=== PATIENT | female | born 1955 | race Caucasian/White ===

== ENCOUNTER 2025-04-22 10:51 | Inpatient (IN) | payer MEDICARE ==
[2025-04-22 11:24] LABS: Glucose,Whole Blood 124 mg/dL (70-110)
--- NOTE | 2025-04-22 11:33 | ED ---
General Adult HPI - General Chief complaint: Neuro Symptoms/Deficit Stated complaint: Visual issue Time Seen by Provider: 04/22/25 11:01 Source: patient, RN notes reviewed, old records reviewed Mode of arrival: ambulatory Limitations: no limitations - History of Present Illness Initial comments: 69-year-old female presenting for evaluation of double vision which began 5 days prior. Patient saw ophthalmology today and was sent to the emergency department to rule out CVA. She has double vision resolved with patching or covering of either eye. She denies significant headache. Denies focal numbness or weakness. Patient was started on Ozempic on Monday and symptoms began on . - Related Data Home Medications Medication Instructions Recorded Confirmed Albuterol Sulfate [Albuterol 2 puff INHALATION RT-QID PRN 04/22/25 04/22/25 Sulfate Hfa] Aspirin EC [Ecotrin Low Dose] 81 mg PO DAILY 04/22/25 04/22/25 Bacillus Coagulans [Digestive 1 tab PO DAILY 04/22/25 04/22/25 Advantage Probiotic Chew] Cholecalciferol (Vitamin D3) 50 mcg PO DAILY 04/22/25 04/22/25 [Vitamin D3 (50 Mcg = 2000 Iu) Chew Tab] Citalopram Hydrobromide [CeleXA] 40 mg PO HS 04/22/25 04/22/25 Cranberry 4200mg 4,200 mg PO TID 04/22/25 04/22/25 Enalapril [Vasotec] 20 mg PO BID 04/22/25 04/22/25 Famotidine [Pepcid] 20 mg PO BID 04/22/25 04/22/25 Fenofibrate [Lofibra] 160 mg PO DAILY 04/22/25 04/22/25 Insulin Degludec [Tresiba 47 units SQ HS 04/22/25 04/22/25 Flextouch U-100 Pen] Loratadine [Claritin] 10 mg PO DAILY PRN 04/22/25 04/22/25 Meloxicam [Mobic] 7.5 mg PO BID 04/22/25 04/22/25 Metoprolol Succinate [Toprol XL] 100 mg PO HS 04/22/25 04/22/25 Montelukast [Singulair] 10 mg PO HS 04/22/25 04/22/25 Multivitamins, Thera [Multivitamin 1 tab PO DAILY 04/22/25 04/22/25 (formulary)] [place]-3/Dha/Epa/Fish Oil [Fish Oil 1 cap PO BID 04/22/25 04/22/25 EC 1,000 mg Softgel] Omeprazole [PriLOSEC] 20 mg PO BID 04/22/25 04/22/25 Semaglutide [Ozempic] 0.25 mg SQ WE 04/22/25 04/22/25 Simvastatin [Zocor] 40 mg PO HS 04/22/25 04/22/25 amLODIPine [Norvasc] 10 mg PO HS 04/22/25 04/22/25 buPROPion XL [Wellbutrin XL] 300 mg PO DAILY 04/22/25 04/22/25 metFORMIN HCL 1,000 mg PO BID 04/22/25 04/22/25 Allergies Allergy/AdvReac Type Severity Reaction Status Date / Time Penicillins Allergy Rash/Hives Verified 04/22/25 12:19 Review of Systems ROS Statement: Those systems with pertinent positive or pertinent negative responses have been documented in the HPI. ROS Other: All systems not noted in ROS Statement are negative. 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 Absent: periorbital swelling Neck exam: Present: normal inspection. Absent: tenderness, meningismus Respiratory exam: Present: normal lung sounds bilaterally. Absent: respiratory distress, wheezes Cardiovascular Exam: Present: regular rate, normal rhythm GI/Abdominal exam: Present: soft. Absent: distended, tenderness, guarding Extremities exam: Present: normal inspection, normal capillary refill Neurological exam: Present: alert, oriented X3, CN II-XII intact (Suspect 3rd n erve palsy). Absent: motor sensory deficit Psychiatric exam: Present: normal affect, normal mood Skin exam: Present: warm, dry, intact Course Vital Signs 04/22/25 10:56 Temperature 98.0 F Pulse Rate 63 Respiratory 18 Rate Blood Pressure 133/84 O2 Sat by Pulse 98 Oximetry Medical Decision Making - Medical Decision Making Was pt. sent in by a medical professional or institution (BOGDAN Reeves, QUALITY PROCESS ENGINEER, urgent care, hospital, or half-way...) When possible be specific @ -No Did you speak to anyone other than the patient for history (EMS, parent, family, police, friend...)? What history was obtained from this source @ -No Did you review nursing and triage notes (agree or disagree)? Why? @ -I reviewed and agree with nursing and triage notes Were old charts reviewed (outside hosp., previous admission, EMS record, old EKG, old radiological studies, urgent care reports/EKG's, half-way records)? Report findings @ -No old charts were reviewed Differential CVA Ischemic stroke, hemorrhagic stroke, brain tumor, atypical migraine, Wernicke's encephalopathy, seizure, multiple sclerosis, meningitis, encephalitis, hypoglycemia, Guillain-, electrolytes disturbance, myasthenia gravis.... This is not meant to be an all-inclusive list EKG interpreted by me (3pts min.). @ -[Sinus rhythm rate of 62, WI interval 206, QRS duration 80, QTc 428 X-rays interpreted by me (1pt min.). @ -None done CT interpreted by me (1pt min.). @CT brain and CT angiography obtained, no intracranial occlusion or stenosis, no aneurysmal change, no intracranial hemorrhage. U/S interpreted by me (1pt. min.). @ -None done What testing was considered but not performed or refused? (CT, X-rays, U/S, labs)? Why? @ -None What meds were considered but not given or refused? Why? @ -None Did you discuss the management of the patient with other professionals (professionals i.e. BOGDAN Reeves, QUALITY PROCESS ENGINEER, lab, RT, psych nurse, social science professor, cabin cleaner, teacher, command center officer, counseling case manager)? Give summary @Case discussed with Dr. Fry who will admit and Dr. Naranjo covering for neurology Was smoking cessation discussed for >3mins.? @ -No Was critical care preformed (if so, how long)? @ -No Were there social determinants of health that impacted care today? How? (Homelessness, low income, unemployed, alcoholism, drug addiction, transportation, low edu. Level, literacy, decrease access to med. care, snf, rehab)? @ -No Was there de-escalation of care discussed even if they declined (Discuss DNR or withdrawal of care, Hospice)? DNR status @ -No What co-morbidities impacted this encounter? (DM, HTN, Smoking, COPD, CAD, Cancer, CVA, ARF, Chemo, Hep., AIDS, mental health diagnosis, sleep apnea, morbid obesity)? @ -[Hypertension and diabetes Was patient admitted / discharged? Hospital course, mention meds given and route, prescriptions, significant lab abnormalities, going to OR and other pertinent info. @ -69-year-old female presenting with a 5-day history of double vision. Patient has a partial paralysis of the right eye medial rectus on exam. Patient was sent in by ophthalmology for CVA rule out. CT CT angiography were ordered these were unremarkable. Patient has normal laboratory testing. She will be observed for MRI and neurology consultation. Undiagnosed new problem with uncertain prognosis? @ -No Drug Therapy requiring intensive monitoring for toxicity (Heparin, Nitro, Insulin, Cardizem)? @ -No Were any procedures done? @ -No Diagnosis/symptom? @3rd nerve palsy on the right Acute, or Chronic, or Acute on Chronic? @Acute Uncomplicated (without systemic symptoms) or Complicated (systemic symptoms)? @Complicated Side effects of treatment? @ -No Exacerbation, Progression, or Severe Exacerbation? @ -No Poses a threat to life or bodily function? How? (Chest pain, [place], CO, pneumonia, PE, COPD, DKA, ARF, appy, cholecystitis, CVA, Diverticulitis, Homicidal, Suicidal, threat to staff... and all critical care pts) @Yes, CVA - Lab Data Result diagrams: 04/22/25 11:33 04/22/25 11:33 Lab Results 04/22/25 04/22/25 04/22/25 Range/Units 11:23 11:33 11:33 WBC 8.68 (4.50-10.00) 10*3/uL RBC 4.51 (4.10-5.20) 10*6/uL Hgb 14.1 (12.0-15.0) g/dL Hct 40.5 (37.2-46.3) % MCV 89.8 (80.0-97.0) fL MCH 31.3 (27.0-32.0) pg MCHC 34.8 (32.0-37.0) g/dL Plt Count 119 L (140-440) 10*3/uL MPV 12.4 H (9.5-12.2) fL Immature Gran % (Auto) 0.6 % Neutrophils % 61.2 % Lymphocytes % 28.6 % Monocytes % 6.6 % Eosinophils % 2.1 % Basophils % 0.9 % Immature Gran # 0.05 H (0.00-0.04) 10*3/uL Neutrophils # 5.32 (1.80-7.70) 10*3/uL Lymphocytes # 2.48 (0.90-5.00) 10*3/uL Monocytes # 0.57 (0.20-1.00) 10*3/uL Eosinophils # 0.18 (0.04-0.35) 10*3/uL Basophils # 0.08 (0.00-0.10) 10*3/uL PT 10.4 (10.0-12.5) sec INR 0.9 (<1.2) APTT 21.9 L (22.0-30.0) sec Sodium (137-145) mmol/L Potassium (3.5-5.1) mmol/L Chloride (98-107) mmol/L Carbon Dioxide (22-30) mmol/L Anion Gap mmol/L BUN (7-17) mg/dL Creatinine (0.52-1.04) mg/dL Est GFR (CKD-EPI)AfAm (>60 ml/min/1.73 sqM) Est GFR (CKD-EPI)NonAf (>60 ml/min/1.73 sqM) Glucose (74-99) mg/dL POC Glucose (mg/dL) 124 H (70-110) mg/dL POC Glu Fish Drier ID Hardy Garza Calcium (8.4-10.2) mg/dL Total Bilirubin (0.2-1.3) mg/dL AST (14-36) U/L ALT (4-34) U/L Alkaline Phosphatase (38-126) U/L Creatine Kinase (30-135) U/L Total Protein (6.3-8.2) g/dL Albumin (3.5-5.0) g/dL 04/22/25 Range/Units 11:33 WBC (4.50-10.00) 10*3/uL RBC (4.10-5.20) 10*6/uL Hgb (12.0-15.0) g/dL Hct (37.2-46.3) % MCV (80.0-97.0) fL MCH (27.0-32.0) pg MCHC (32.0-37.0) g/dL Plt Count (140-440) 10*3/uL MPV (9.5-12.2) fL Immature Gran % (Auto) % Neutrophils % % Lymphocytes % % Monocytes % % Eosinophils % % Basophils % % Immature Gran # (0.00-0.04) 10*3/uL Neutrophils # (1.80-7.70) 10*3/uL Lymphocytes # (0.90-5.00) 10*3/uL Monocytes # (0.20-1.00) 10*3/uL Eosinophils # (0.04-0.35) 10*3/uL Basophils # (0.00-0.10) 10*3/uL PT (10.0-12.5) sec INR (<1.2) APTT (22.0-30.0) sec Sodium 139 (137-145) mmol/L Potassium 4.9 (3.5-5.1) mmol/L Chloride 103 (98-107) mmol/L Carbon Dioxide 26 (22-30) mmol/L Anion Gap 10 mmol/L BUN 21 H (7-17) mg/dL Creatinine 0.92 (0.52-1.04) mg/dL Est GFR (CKD-EPI)AfAm 73 (>60 ml/min/1.73 sqM) Est GFR (CKD-EPI)NonAf 64 (>60 ml/min/1.73 sqM) Glucose 113 H (74-99) mg/dL POC Glucose (mg/dL) (70-110) mg/dL POC Glu Fish Drier ID Calcium 9.6 (8.4-10.2) mg/dL Total Bilirubin 0.6 (0.2-1.3) mg/dL AST 22 (14-36) U/L ALT 14 (4-34) U/L Alkaline Phosphatase 72 (38-126) U/L Creatine Kinase 55 (30-135) U/L Total Protein 7.3 (6.3-8.2) g/dL Albumin 4.4 (3.5-5.0) g/dL Disposition 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
[2025-04-22 11:45] LABS: Basophils # (A) 0.08 10*3/uL (0.00-0.10); Basophils % (A) 0.9 %; Eosinophils # (A) 0.18 10*3/uL (0.04-0.35); Eosinophils % (A) 2.1 %; HCT 40.5 % (37.2-46.3); HGB 14.1 g/dL (12.0-15.0); Lymphocytes # (A) 2.48 10*3/uL (0.90-5.00); Lymphocytes % (A) 28.6 %; MCH 31.3 pg (27.0-32.0); MCHC 34.8 g/dL (32.0-37.0); MCV 89.8 fL (80.0-97.0); Monocytes # (A) 0.57 10*3/uL (0.20-1.00); Monocytes % (A) 6.6 %; Neutrophils # (A) 5.32 10*3/uL (1.80-7.70); Neutrophils % (A) 61.2 %; Platelet Count 119 10*3/uL (140-440); RBC 4.51 10*6/uL (4.10-5.20); RDW 12.6 % (11.5-14.5); WBC 8.68 10*3/uL (4.50-10.00)
[2025-04-22 11:57] LABS: ALT 14 U/L (4-34); AST 22 U/L (14-36); African American GFR (CKD) 73 (>60 ml/min/1.73 sqM); Albumin 4.4 g/dL (3.5-5.0); Alkaline Phosphatase 72 U/L (38-126); Anion Gap 10 mmol/L; Blood Urea Nitrogen 21 mg/dL (7-17); Calcium 9.6 mg/dL (8.4-10.2); Carbon Dioxide 26 mmol/L (22-30); Chloride 103 mmol/L (98-107); Creatine Kinase 55 U/L (30-135); Glucose 113 mg/dL (74-99); Non-African American GFR(CKD) 64 (>60 ml/min/1.73 sqM); Potassium 4.9 mmol/L (3.5-5.1); Sodium 139 mmol/L (137-145); Total Protein 7.3 g/dL (6.3-8.2)
[2025-04-22 11:59] LABS: INR 0.9 (<1.2); Partial Thromboplastin Time 21.9 sec (22.0-30.0); Prothrombin Time 10.4 sec (10.0-12.5)
--- NOTE | 2025-04-22 12:56 | CT ---
EXAMINATION TYPE: CT brain wo con DATE OF EXAM: 04/22/2025 12:49 PM COMPARISON: None. CLINICAL INDICATION: Female, 69 years old with history of Acute onset double vision, Acute onset doub le vision, TECHNIQUE: Examination was done in axial plane without intravenous contrast. Coronal and sagittal r econstructions performed. CT DLP: 1153 mGycm, Automated exposure control for dose reduction was used. FINDINGS: There is no evidence of acute intracranial hemorrhage, acute ischemic changes, mass, mass-effect, or extra-axial fluid collection. There is no effacement of cerebral sulci or basal subarachnoid cister ns. Mild ventricular prominence likely due to some central cerebral atrophy. There is no midline shif t. Prieto-white matter distinction is preserved. Moderate to severe confluent white matter hypodensities in both cerebral hemispheres. Moderate mucosal thickening left maxillary sinus. There is some underlying reactive new osteogenesis suggesting long-standing paranasal sinus disease. IMPRESSION: 1. Mild cerebral atrophy. Moderate to severe confluent burden of chronic small vessel ischemic diseas e. 2. No acute intracranial abnormality seen. If concern for subtle acute ischemia, consider follow-up M RI. 3. Long-standing chronic left maxillary sinusitis. [facility], , 04/22/2025 12:54 PM
--- NOTE | 2025-04-22 13:08 | CT ---
EXAMINATION TYPE: CT angio head neck DATE OF EXAM: 04/22/2025 12:54 PM COMPARISON: CT brain same day. CLINICAL INDICATION: Female, 69 years old with history of Acute onset double vision; PHH, Acute onset double vision TECHNIQUE: Axially acquired helical CT angiogram of the head and neck was obtained with contrast. Axi al images are supplemented with 3D reconstructions and MIP images which were post-processed at an in dependent workstation. NASCET criteria used. Contrast used:65 ml mL of Isovue 370 without and with IV Contrast, Oral contrast used: None. CT DLP: 462.1 mGycm, Automated exposure control for dose reduction was used. FINDINGS: CTA HEAD: Bilateral internal carotid arteries as well as the remainder of the anterior circulation is patent. The bilateral vertebral and basilar artery as well as the remainder of the posterior circulation is p atent. There is persistent origin left posterior cerebral artery. Dural venous sinuses are patent. No aneurysmal changes seen. CTA NECK: There is bovine configuration to the aortic arch. The vertebral arteries are codominant and patent throughout their course. The bilateral common carotid arteries are patent. The bilateral internal carotid arteries are patent. There is focal tortuosity of the proximal left IC A and minimal atherosclerotic calcifications of the left carotid bulb. The left carotid bulb, axial series 501 image 75 and coronal series 502 image 50 shows very subtle cu rvilinear intraluminal low density favored to represent artifact rather than a subtle dissection flap . Follow-up recommended. There is no abnormal mural thickening, significant atherosclerotic change, o r abnormal luminal narrowing appreciated. IMPRESSION: NECK: 1. Very subtle intraluminal linear low density within the left carotid bulb (axial series 501 image 7 5, coronal series 502 image 50) favored to represent artifact rather than a subtle short segment, dis section flap. No significant atherosclerotic change, mural thickening, or luminal narrowing is seen h ere. CTA follow-up in a couple days can be considered. 2. Otherwise, widely patent vertebral and carotid arteries of the neck. HEAD: 3. No large vessel intracranial arterial occlusion, significant stenosis, or aneurysmal change is see n. 4. 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 [facility], , 04/22/2025 1:06 PM
[2025-04-22] MEDS: ASPIRIN 325 MG TAB PO STA (13:17)
[2025-04-22] MEDS ORDERED: NALOXONE 0.4 MG/ML 1 ML VIAL IV PRN (13:36)
--- NOTE | 2025-04-22 16:27 | P.CNNES ---
History of Present Illness Consult date: 04/22/25 Requesting physician: Suraj Lanier Reason for Consult: right 3rd cranial nerve palsy History of Present Illness: This is a 69-year-old woman with underlying history of chronic diabetes, hypertension who was referred from her robotics systems engineer because of diplopia and to rule out stroke. Patient stated that since this past she has been having vertical diplopia and it was sudden onset. She initially noticed that her right eye was just swaying to the right. Had a when she closes either eye the diplopia improved. She denies any visual loss. Denies any new headache. She has chronic headaches but nothing worse than baseline. Denies any numbness, any speech difficulty, any difficulty swallowing, any weakness that is new. Denies any history of stroke or TIA in the past. She does take aspirin 81 mg daily. She was evaluated by outpatient robotics systems engineer Dr. Alonzo who felt the patient has right 4th cranial nerve palsy with questionable third cranial palsy over the left. Seems the patient has chronic diabetes for at least 22 years and this past Monday she started Ozempic for the first time. She has chronic hypertension and she thinks for about the same time. Her recent hemoglobin A1c was 7.6 about a week ago. Some of the workup during this hospital visit consisted of: I reviewed the lab workup CT of the head is reported as mild cerebral atrophy. Moderate to severe confluent burden of chronic small vessel ischemic disease. No acute intracranial abnormality seen. CT angiography of the head is reported as no large vessel intracranial arterial occlusion, significant stenosis or aneurysm change is seen. Anatomic variation with persistent origin left STAFF DEVELOPMENT COORDINATOR RN. CT angiography of the neck is reported as very septal intraluminal linear low- density within the left carotid favored to represent artifact rather than septal short segment dissection flap. No significant atherosclerotic change, mural thickening or luminal narrowing is seen here. CT angiography follow-up in a co uple days can be considered. Otherwise widely patent vertebral and carotid artery of the neck. 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 Past Psychological History: No Psychological Hx Reported Smoking Status: Never smoker Past Alcohol Use History: None Reported Past Drug Use History: Marijuana Medications and Allergies Home Medications Medication Instructions Recorded Confirmed Type Albuterol Sulfate [Albuterol 2 puff INHALATION RT-QID PRN 04/22/25 04/22/25 History Sulfate Hfa] Aspirin EC [Ecotrin Low Dose] 81 mg PO DAILY 04/22/25 04/22/25 History Bacillus Coagulans [Digestive 1 tab PO DAILY 04/22/25 04/22/25 History Advantage Probiotic Chew] Cholecalciferol (Vitamin D3) 50 mcg PO DAILY 04/22/25 04/22/25 History [Vitamin D3 (50 Mcg = 2000 Iu) Chew Tab] Citalopram Hydrobromide [CeleXA] 40 mg PO HS 04/22/25 04/22/25 History Cranberry 4200mg 4,200 mg PO TID 04/22/25 04/22/25 History Enalapril [Vasotec] 20 mg PO BID 04/22/25 04/22/25 History Famotidine [Pepcid] 20 mg PO BID 04/22/25 04/22/25 History Fenofibrate [Lofibra] 160 mg PO DAILY 04/22/25 04/22/25 History Insulin Degludec [Tresiba 47 units SQ HS 04/22/25 04/22/25 History Flextouch U-100 Pen] Loratadine [Claritin] 10 mg PO DAILY PRN 04/22/25 04/22/25 History Meloxicam [Mobic] 7.5 mg PO BID 04/22/25 04/22/25 History Metoprolol Succinate [Toprol XL] 100 mg PO HS 04/22/25 04/22/25 History Montelukast [Singulair] 10 mg PO HS 04/22/25 04/22/25 History Multivitamins, Thera [Multivitamin 1 tab PO DAILY 04/22/25 04/22/25 History (formulary)] [place]-3/Dha/Epa/Fish Oil [Fish Oil 1 cap PO BID 04/22/25 04/22/25 History EC 1,000 mg Softgel] Omeprazole [PriLOSEC] 20 mg PO BID 04/22/25 04/22/25 History Semaglutide [Ozempic] 0.25 mg SQ WE 04/22/25 04/22/25 History Simvastatin [Zocor] 40 mg PO HS 04/22/25 04/22/25 History amLODIPine [Norvasc] 10 mg PO HS 04/22/25 04/22/25 History buPROPion XL [Wellbutrin XL] 300 mg PO DAILY 04/22/25 04/22/25 History metFORMIN HCL 1,000 mg PO BID 04/22/25 04/22/25 History Allergies Allergy/AdvReac Type Severity Reaction Status Date / Time Penicillins Allergy Rash/Hives Verified 04/22/25 12:19 Physical Examination - Vital Signs Vital Signs: Vital Signs Temp Pulse Resp BP Pulse Ox 04/22/25 10:56 98.0 F 63 18 133/84 98 Intake and Output 04/22/25 04/22/25 04/22/25 06:59 14:59 22:59 Other: Weight 77.111 kg GENERAL: The patient is sitting on a recliner chair and is not in acute distress. NEUROLOGICAL: Higher mental function: The patient is awake, alert, oriented to self, place and time. Patient is following commands. No aphasia and no neglect. Cranial nerves: The pupils are round, equal and reactive to light and accommodation. Visual mchugh are full to confrontation throughout. Extraocular movement is rotatory nystagmus looking to right and on examination has partial decrease in looking up on the left. Facial sensation is normal to touch throughout. The facial strength is normal throughout. Hearing is normal bilaterally to hand rub. Tongue is midline and moved [id number] without any difficulty. No dysarthria is noted. Shoulder shrug is normal bilaterally. Motor: The strength is 5 over 5 throughout. Normal tone and bulk. Cerebellum: Normal finger to nose bilaterally. Sensation: Sensation is normal to touch throughout. Results - Laboratory Findings CBC and BMP: 04/22/25 11:33 04/22/25 11:33 Abnormal Lab Findings: Abnormal Labs 04/22/25 04/22/25 04/22/25 11:23 11:33 11:33 Plt Count 119 L MPV 12.4 H Immature Gran # 0.05 H APTT 21.9 L BUN Glucose POC Glucose (mg/dL) 124 H 04/22/25 11:33 Plt Count MPV Immature Gran # APTT BUN 21 H Glucose 113 H POC Glucose (mg/dL) Assessment and Plan Assessment: This is a 69-year-old woman who was referred by her outpatient robotics systems engineer because of her sudden onset diplopia since this past and to rule out a stroke. Patient has been having diplopia of either eye and improves with covering either eye. Her robotics systems engineer was concerned that the patient has 4th cranial nerve palsy over the right and questionable third over the left. ED physician felt the patient had right 3rd cranial nerve palsy Acute cranial nerve palsy due to chronic diabetes or hypertension. Her outpatient robotics systems engineer as she has right 4th cranial nerve palsy and questionable left third. ED physician feels it is right third. I feel possibly left 3rd palsy Rule out stroke but I feel unlikely. Chronic diabetes mellitus Hypertension Marijuana use Plan: Will proceed with a MRI of the brain and if it is positive we will get the rest of the stroke workup Patient was given aspirin 325 once in the ED I ordered TSH, vitamin B12 CT angiography of the neck is reported as very septal intraluminal linear low- density within the left carotid favored to represent artifact rather than septal short segment dissection flap. No significant atherosclerotic change, mural thickening or luminal narrowing is seen here. CT angiography follow-up in a couple days can be considered. Otherwise widely patent vertebral and carotid artery of the neck. Will pursue with repeat imaging within a couple days. Will defer the rest of the medical management the primary other specialist Thank you for the consultation. Time with Patient: Greater than 30
[2025-04-22] MEDS ORDERED: LORATADINE 10 MG TAB PO PRN (16:41)
[2025-04-22] MEDS: metFORMIN 500 MG TAB PO SCH (17:19)
[2025-04-22] MEDS: PANTOPRAZOLE 40 MG TABLET PO SCH (17:19)
[2025-04-22 20:46] LABS: Glucose,Whole Blood 110 mg/dL (70-110)
--- NOTE | 2025-04-22 20:54 | MR ---
INDICATION: Patient age:Female; 69 years old; Reason for study: Double vision/right 3rd nerve palsy; PHH. COMPARISON: CT brain 04/22/2025, CTA head neck 04/22/2025. TECHNIQUE: Multi planar, multi sequence imaging was performed through the brain without administratio n of intravenous contrast. FINDINGS: The alfaro-white junctions appear unremarkable. Moderate diffuse cerebral atrophy. Prominence of the v entricular system and basal cisterns consistent with level of cerebral atrophy. Focus of restricted d iffusion with corresponding low signal on ADC map involving the right corpus callosum splenium. Small remote lacunar injury involving the right richter radiata. Intracranial arterial flow voids are maint ained. Midline structures show no abnormality. Patchy and confluent areas of high T2/FLAIR signal int ensity are seen within the periventricular and subcortical white matter. Additional involvement of th e central byron. The susceptibility weighted images do not reveal any evidence for micro-hemorrhage. The bone marrow signal is within normal limits. Bilateral aphakia. Moderate mucosal thickening of the left maxillary sinus. IMPRESSION: 1. Acute/subacute ischemia within the right splenium of the corpus callosum. 2. Remote small lacunar infarct within the right richter radiata. 3. Advanced nonspecific white matter changes, likely related to small vessel ischemic disease. [facility], , 04/22/2025 8:51 PM
[2025-04-22] MEDS ORDERED: [UNRECOGNIZED DRUG - OTHER] PO SCH (21:00)
[2025-04-22] MEDS ORDERED: EPA PO SCH (21:00)
[2025-04-22] MEDS ORDERED: FISH OIL PO SCH (21:00)
[2025-04-22] MEDS ORDERED: OMEGA PO SCH (21:00)
[2025-04-22] MEDS ORDERED: DHA PO SCH (21:00)
[2025-04-22] MEDS: CITALOPRAM HYDROBROMIDE 20 MG TAB PO SCH (21:34)
[2025-04-22] MEDS: ATORVASTATIN 20 MG TAB PO SCH (21:34)
[2025-04-22] MEDS: amLODIPine 10 MG TAB PO SCH (21:34)
[2025-04-22] MEDS: MONTELUKAST 10 MG TAB PO SCH (21:35)
[2025-04-22] MEDS: FAMOTIDINE 20 MG TAB PO SCH (21:35)
[2025-04-22] MEDS: INSULIN GLARGINE (LANTUS) 100 UNIT/ML SYR SQ SCH (21:46)
[2025-04-22] MEDS: METOPROLOL SUCCINATE (ER) 100 MG TAB.ER.24H PO SCH (22:49)
[2025-04-22] MEDS: ONDANSETRON 4 MG/2 ML VIAL IVP PRN (23:06)
[2025-04-23 06:01] LABS: Glucose,Whole Blood 75 mg/dL (70-110)
--- NOTE | 2025-04-23 08:41 | XR ---
EXAMINATION TYPE: XR chest 2V DATE OF EXAM: 04/23/2025 7:54 AM COMPARISON: None CLINICAL INDICATION: Female, 69 years old with history of dyspnea, shortness of breath TECHNIQUE: Frontal and lateral views FINDINGS: Heart normal size. Aorta and pulmonary vasculature within normal limits. Hazy lower lung densities re lating to overlying soft tissue. Mild hyperinflation. No consolidation or pleural effusion. IMPRESSION: Mild hyperinflation may relate to depth of inspiration or underlying emphysema. Otherwise, no acute c ardiopulmonary process. [facility], Workstation: [email or web address], 04/23/2025 8:38 AM
[2025-04-23] MEDS: IPRATROPIUM-ALBUTEROL 3 ML NEB INHALATION SCH (08:42)
[2025-04-23] MEDS: FENOFIBRATE 160 MG TAB PO SCH (08:55)
[2025-04-23] MEDS: buPROPion XL 300 MG TAB.ER.24H PO SCH (08:55)
[2025-04-23] MEDS: ASPIRIN 81 MG PO SCH (08:55)
[2025-04-23] MEDS: MULTIVITAMINS, THERA 1 EACH TAB PO SCH (08:55)
[2025-04-23 12:15] LABS: Glucose,Whole Blood 156 mg/dL (70-110)
[2025-04-23] MEDS: CLOPIDOGREL 75 MG TAB PO SCH (12:39)
--- NOTE | 2025-04-23 12:46 | CA ---
Transthoracic Echo Report Name: Paty Murphy Age: 69 Gender: F : 1955 Exam Date: 04/23/2025 09:02 Exam Location: [facility] Ht (in): 63 Wt (lb): 170 Ordering Physician: Dawit Fry MD Attending/Referring Phys: Director Fixed Income Suraj Huerta RDCS Procedure CPT: Indications: embolic CVA Cardiac Hx: Technical Quality: Poor Contrast 1: Total Dose (mL): Contrast 2: Total Dose (mL): MEASUREMENTS (Male / Female) Normal Values 2D ECHO LV Diastolic Diameter PLAX 3.4 cm 4.2 - 5.9 / 3.9 - 5.3 cm LV Systolic Diameter PLAX 1.9 cm IVS Diastolic Thickness 1.5 cm 0.6 - 1.0 / 0.6 - 0.9 cm LVPW Diastolic Thickness 1.6 cm 0.6 - 1.0 / 0.6 - 0.9 cm LV Relative Wall Thickness 0.9 RV Internal Dim ED PLAX 3.8 cm LA Systolic Diameter LX 4.2 cm 3.0 - 4.0 / 2.7 - 3.8 cm LV Diastolic Volume MOD BP 41.9 cm??? 67 - 155 / 56 - 104 cm??? LV Systolic Volume MOD BP 17.7 cm??? 22 - 58 / 19 - 49 cm??? LV Ejection Fraction MOD BP 57.8 % >= 55 % LV Cardiac Index MOD BP 927.5 cm???/min???m??? LV Diastolic Volume MOD 4C 45.7 cm??? LV Systolic Volume MOD 4C 25.7 cm??? LV Ejection Fraction MOD 4C 43.8 % LV Cardiac Index MOD 4C 766.5 cm???/min???m??? LV Diastolic Length 4C 6.4 cm LV Systolic Length 4C 5.4 cm LV Diastolic Volume MOD 2C 35.8 cm??? LV Systolic Volume MOD 2C 12.4 cm??? LV Ejection Fraction MOD 2C 65.4 % LV Cardiac Index MOD 2C 897.3 cm???/min???m??? LV Diastolic Length 2C 5.9 cm LV Systolic Length 2C 5.4 cm LA Volume 52.4 cm??? 18 - 58 / 22 - 52 cm??? LA Volume Index 27.9 cm???/m??? 16 - 28 cm???/m??? DOPPLER AV Peak Velocity 172.8 cm/s AV Peak Gradient 11.9 mmHg AV Mean Velocity 104.8 cm/s AV Mean Gradient 5.2 mmHg AV Velocity Time Integral 28.1 cm AI Peak Velocity 390.6 cm/s AI Peak Gradient 61.0 mmHg AI Pressure Half Time 559.8 ms LVOT Peak Velocity 87.2 cm/s LVOT Peak Gradient 3.0 mmHg LVOT Velocity Time Integral 15.0 cm MV Peak Velocity 133.7 cm/s MV Peak Gradient 7.1 mmHg MV Mean Velocity 82.5 cm/s MV Mean Gradient 3.2 mmHg MV Velocity Time Integral 44.5 cm MV Area PHT 3.3 cm??? Mitral E Point Velocity 74.4 cm/s Mitral A Point Velocity 121.5 cm/s Mitral E to A Ratio 0.6 MV Deceleration Time 230.0 ms FINDINGS Left Ventricle Left ventricular ejection fraction is estimated at 55-60 %. Moderately increased septal wall thickness. Severely increased posterior wall thickness. Normal left ventricular wall motion. Left ventricular cavity size normal. Right Ventricle Normal right ventricular size and function. Right Atrium Normal right atrial size. No right atrial thrombus or mass seen. Left Atrium Normal left atrial size. No left atrial thrombus or mass present. Mitral Valve No mitral stenosis. Mild mitral regurgitation. Severe mitral annular calcification with a Mean PG 3.2 mmHg. Aortic Valve Thickened aortic valve without stenosis. Mild aortic stenosis. Mild aortic regurgitation. Tricuspid Valve No tricuspid stenosis. Trace tricuspid regurgitation. Pulmonic Valve Pulmonic valve not well visualized. Pericardium Normal pericardium. No pericardial or pleural effusion. Aorta Normal size aortic root and proximal ascending aorta. CONCLUSIONS Technically difficult study Normal LV systolic function Mitral annular calcifications with no significant gradient across the mitral valve Thickened mitral valve leaflets with mild aortic sclerosis with mild stenosis and mild insufficiency Previewed by: Dr. Randy Liz MD (Electronically Signed) Final Date: 23 April 2025 12:45
[2025-04-23 15:58] LABS: Cholesterol 148.00 mg/dL (0.00-200.00); HDL Cholesterol 42.30 mg/dL (40.00-60.00); LDL Cholesterol,Calculated 65.5 mg/dL (0.0-131.0); Triglycerides 201.00 mg/dL (0.00-149.00); VLDL Calculation 40.20 mg/dL (5.00-40.00); Vitamin B12 981.0 pg/mL (200.0-944.0)
--- NOTE | 2025-04-23 16:37 | P.PN ---
Subjective Progress Note Date: 04/23/25 I am following-up with the patient and feels about the same. Denies any new neurological issues. Objective - Vital Signs Vital signs: Vital Signs Temp 99.3 F 04/23/25 14:21 Pulse 81 04/23/25 14:21 Resp 16 04/23/25 14:21 BP 157/70 04/23/25 14:21 Pulse Ox 95 04/23/25 14:21 FiO2 Intake & Output 04/22/25 04/23/25 04/23/25 18:59 06:59 18:59 Intake Total 358 Balance 358 Weight 77.111 kg Intake: Oral 358 Other: Voiding Method Toilet Toilet # Voids 2 1 - Exam GENERAL: The patient is sitting on bed and is not in acute distress. NEUROLOGICAL: Higher mental function: The patient is awake, alert, oriented to self, place and time. Patient is following commands. No aphasia and no neglect. Cranial nerves: The pupils are round, equal and reactive to light and accommodation. Visual mchugh are full to confrontation throughout. Extraocular movement is rotatory nystagmus looking to right and on examination has partial decrease in looking up on the left. Facial sensation is normal to touch throughout. The facial strength is normal throughout. Hearing is normal bilaterally to hand rub. Tongue is midline and moved [id number] without any difficulty. No dysarthria is noted. Shoulder shrug is normal bilaterally. Motor: The strength is 5 over 5 throughout. Normal tone and bulk. Cerebellum: Normal finger to nose bilaterally. Sensation: Sensation is normal to touch throughout. Some of the workup during this hospital visit consisted of: I reviewed the lab workup CT of the head is reported as mild cerebral atrophy. Moderate to severe confluent burden of chronic small vessel ischemic disease. No acute intracra nial abnormality seen. CT angiography of the head is reported as no large vessel intracranial arterial occlusion, significant stenosis or aneurysm change is seen. 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 CT angiography of the neck is reported as very septal intraluminal linear low- density within the left carotid favored to represent artifact rather than septal short segment dissection flap. No significant atherosclerotic change, mural thickening or luminal narrowing is seen here. CT angiography follow-up in a couple days can be considered. Otherwise widely patent vertebral and carotid artery of the neck. MRI Brain: It is reported as acute/subacute ischemia within the right splenium of corpus collasum. Remote small lacunar infarct within the right richter radiata. I reviewed MRI and feel it small acute/subacute stroke over the right that is reported and feel it is incidental and unlikely culprit of patient stroke. - Labs CBC & Chem 7: 04/22/25 11:33 04/22/25 11:33 Labs: Abnormal Lab Results - Last 24 Hours (Table) 04/23/25 04/23/25 Range/Units 12:14 12:36 POC Glucose (mg/dL) 156 H (70-110) mg/dL Triglycerides 201.00 H (0.00-149.00) mg/dL VLDL Cholesterol, Calc 40.20 H (5.00-40.00) mg/dL Vitamin B12 981.0 H (200.0-944.0) pg/mL Assessment and Plan Assessment: This is a 69-year-old woman who was referred by her outpatient director payment because of her sudden onset diplopia since this past and to rule out a stroke. Patient has been having diplopia of either eye and improves with covering either eye. Her director payment was concerned that the patient has 4th cranial nerve palsy over the right and questionable third over the left. ED physician felt the patient had right 3rd cranial nerve palsy Acute cranial nerve palsy due to chronic diabetes or hypertension or combination. Her outpatient director payment as she has right 4th cranial nerve palsy and questionable left third. ED physician feels it is right third. I feel possibly left partial 3rd palsy. On MRI patient has acute/subacute stroke over right splenium of corpus collasum and I feel that is incidental. Chronic diabetes mellitus Hypertension Marijuana use Plan: Pending rest of stroke work-up: 2D echo, lipid panel. Patient is resumed on her home ASA 81mg daily and because of her recent acute stroke, I started on Plavix 75mg daily. Recommend dual antiplateletes for 21 days then after that only continue Plavix from neurological perspective and no need for ASA. I ordered TSH, vitamin B12 and ESR. CT angiography of the neck is reported as very septal intraluminal linear low- density within the left carotid favored to represent artifact rather than septal short segment dissection flap. No significant atherosclerotic change, mural thickening or luminal narrowing is seen here. CT angiography follow-up in a couple days can be considered. Otherwise widely patent vertebral and carotid artery of the neck. I will obtain repeat CTA head and neck tomorrow. Continue neuro checks Cardiac monitoring Recommend 30 days event monitor. No need for PT, OT and TOP LIFT COMPRESSOR since no focal deficit except cranial nerve palsy Will defer the rest of the medical management the primary other specialist For DVT prophylaxis: Started on subq heparin. The plan is discussed with patient and her who is at bedside. Time with Patient: Less than 30
[2025-04-23] MEDS ORDERED: NON FORMULARY DRUG (Semaglutide [Ozempic] 0.25 MG/0.368 ML Pen.Injctr) SQ SCH (16:41)
[2025-04-23 17:25] LABS: Glucose,Whole Blood 100 mg/dL (70-110)
[2025-04-23 20:33] LABS: Glucose,Whole Blood 174 mg/dL (70-110)
[2025-04-23] MEDS: ATORVASTATIN 20 MG TAB PO SCH (20:57)
[2025-04-23] MEDS: ACETAMINOPHEN TAB 325 MG TAB PO PRN (20:58)
[2025-04-23] MEDS: HEPARIN SODIUM,PORCINE 5,000 UNIT/ML 1 ML VIAL SQ SCH (20:58)
--- NOTE | 2025-04-24 00:03 | HP ---
HISTORY AND PHYSICAL HISTORY OF PRESENT ILLNESS: Got admitted to the hospital. Seen in a room, up on the 6th floor. She had double vision for 5 days. She came in with possible CVA to rule out versus nerve palsy. Neurology evaluated, ordered MRI of the brain. MRI came back with some subacute ischemia. Home medicines were reviewed and restarted. REVIEW OF SYSTEMS: The 14-point review of systems otherwise negative, noted extremity weakness with difficulty swallowing. PAST MEDICAL HISTORY: Hypertension, dyslipidemia, diabetes mellitus. PAST SURGICAL HISTORY: Appendectomy, bone marrow transplant, history of marijuana use. PHYSICAL EXAMINATION: VITAL SIGNS: Temperature 98, blood pressure 134/84, O2 98, pulse 60s, temperature 98. HEENT: Normocephalic, atraumatic. She has a patch on her left eye. She has given appropriate answers. NEUROLOGIC: Cranial nerves intact. GI: Soft, distended, obesity. LUNGS: Show scattered wheeze. HEMATOLOGIC: 2 to 3+ edema. PSYCH: Fair mood and affect. LABORATORY DATA: BUN 21, creatinine 0.92. White count is 3.68, hemoglobin 14.1. Negative troponin. 124. ASSESSMENT AND PLAN: Rule out cerebrovascular accident third nerve palsy partial, insomnia. Prognosis is guarded. Await for MRI. Await for Neurology to evaluate. Monitor vision. Prognosis is guarded. MMODL / IJN: [id number] /
[2025-04-24 02:04] VITALS: RESP 16
[2025-04-24 06:12] LABS: Glucose,Whole Blood 108 mg/dL (70-110)
[2025-04-24 07:21] LABS: African American GFR (CKD) 65 (>60 ml/min/1.73 sqM); Blood Urea Nitrogen 19 mg/dL (7-17); Non-African American GFR(CKD) 56 (>60 ml/min/1.73 sqM)
[2025-04-24 12:26] LABS: Glucose,Whole Blood 168 mg/dL (70-110)
--- NOTE | 2025-04-24 14:21 | P.PN ---
Subjective Progress Note Date: 04/24/25 I am following-up with the patient and feels about the same. Denies any new neurological issues. Objective - Vital Signs Vital signs: Vital Signs Temp 98.5 F 04/24/25 07:17 Pulse 80 04/24/25 08:24 Resp 16 04/24/25 07:17 BP 113/74 04/24/25 07:17 Pulse Ox 96 04/24/25 07:17 FiO2 Intake & Output 04/23/25 04/24/25 04/24/25 18:59 06:59 18:59 Intake Total 598 Balance 598 Intake: Oral 598 Other: Voiding Method Toilet Toilet # Voids 1 2 - Exam GENERAL: The patient is sitting on bed and is not in acute distress. NEUROLOGICAL: Higher mental function: The patient is awake, alert, oriented to self, place and time. Patient is following commands. No aphasia and no neglect. Cranial nerves: The pupils are round, equal and reactive to light and accommodation. Visual mchugh are full to confrontation throughout. Extraocular movement is rotatory nystagmus looking to right and on examination has partial decrease in looking up on the left. Facial sensation is normal to touch throughout. The facial strength is normal throughout. Hearing is normal bilaterally to hand rub. Tongue is midline and moved [id number] without any difficulty. No dysarthria is noted. Shoulder shrug is normal bilaterally. Motor: The strength is 5 over 5 throughout. Normal tone and bulk. Cerebellum: Normal finger to nose bilaterally. Sensation: Sensation is normal to touch throughout. Some of the workup during this hospital visit consisted of: I reviewed the lab workup ESR is 23 Lipid panel as triglycerides 201, cholesterol 148, LDL 65 and HDL is 42. B12 is [address] of the head is reported as mild cerebral atrophy. Moderate to severe confluent burden of chronic small vessel ischemic disease. No acute intracranial abnormality seen. CT angiography of the head is reported as no large vessel intracranial arterial occlusion, significant stenosis or aneurysm change is seen. Anatomic variation with persistent origin left COURT LIAISON. CT angiography of the neck is reported as very septal intraluminal linear low- density within the left carotid favored to represent artifact rather than septal short segment dissection flap. No significant atherosclerotic change, mural thickening or luminal narrowing is seen here. CT angiography follow-up in a couple days can be considered. Otherwise widely patent vertebral and carotid artery of the neck. MRI Brain: It is reported as acute/subacute ischemia within the right splenium of corpus collasum. Remote small lacunar infarct within the right richter radiata. I reviewed MRI and feel it small acute/subacute stroke over the right that is reported and feel it is incidental and unlikely culprit of patient stroke. 2D echo: Technically difficult study. Normal left ventricular systolic function. Mitral annular calcification with no significant gradient across the mitral valve. Thickened mitral valve leaflet with mild aortic sclerosis with mild stenosis and mitral insufficiency. - Labs CBC & Chem 7: 04/22/25 11:33 04/24/25 06:43 Labs: Abnormal Lab Results - Last 24 Hours (Table) 04/23/25 04/23/25 04/24/25 Range/Units 12:36 20:27 06:43 BUN 19 H (7-17) mg/dL POC Glucose (mg/dL) 174 H (70-110) mg/dL Triglycerides 201.00 H (0.00-149.00) mg/dL VLDL Cholesterol, Calc 40.20 H (5.00-40.00) mg/dL Vitamin B12 981.0 H (200.0-944.0) pg/mL 04/24/25 Range/Units 12:25 BUN (7-17) mg/dL POC Glucose (mg/dL) 168 H (70-110) mg/dL Triglycerides (0.00-149.00) mg/dL VLDL Cholesterol, Calc (5.00-40.00) mg/dL Vitamin B12 (200.0-944.0) pg/mL Assessment and Plan Assessment: This is a 69-year-old woman who was referred by her outpatient premium service representative because of her sudden onset diplopia since this past and to rule out a stroke. Patient has been having diplopia of either eye and improves with covering either eye. Her premium service representative was concerned that the patient has 4th cranial nerve palsy over the right and questionable third over the left. ED physician felt the patient had right 3rd cranial nerve palsy Acute cranial nerve palsy due to chronic diabetes or hypertension or c ombination. Her outpatient premium service representative as she has right 4th cranial nerve palsy and questionable left third. ED physician feels it is right third. I feel possibly left partial 3rd palsy. On MRI patient has acute/subacute stroke over right splenium of corpus collasum and I feel that is incidental. Chronic diabetes mellitus Hypertension Marijuana use Plan: Patient is resumed on her home ASA 81mg daily and because of her recent acute stroke, I started on Plavix 75mg daily. Recommend dual antiplateletes for 21 days then after that only continue Plavix from neurological perspective and no need for ASA. CT angiography of the neck is reported as very septal intraluminal linear low- density within the left carotid favored to represent artifact rather than septal short segment dissection flap. No significant atherosclerotic change, mural thickening or luminal narrowing is seen here. CT angiography follow-up in a couple days can be considered. Otherwise widely patent vertebral and carotid artery of the neck. Pending a repeat report CTA head and neck tomrorrow Continue neuro checks Cardiac monitoring Recommend 30 days event monitor. No need for PT, OT and MEDICAL ECONOMICS CONSULTANT since no focal deficit except cranial nerve palsy Will defer the rest of the medical management the primary other specialist For DVT prophylaxis: Started on subq heparin. Upon discharge recommend the patient to follow-up with outpatient neurologist within 2 to 3 weeks as well as premium service representative. If the repeat CT angiography is unremarkable then the patient is cleared from a neurologic perspective. Time with Patient: Less than 30
--- NOTE | 2025-04-24 14:22 | CT ---
EXAMINATION TYPE: CT angio head neck DATE OF EXAM: 04/24/2025 11:00 AM COMPARISON: 04/22/2025. CLINICAL INDICATION: Female, 69 years old with history of stroke. refer to prior CTA; PHH, CVA follo w up TECHNIQUE: Axially acquired helical CT angiogram of the head and neck was obtained with contrast. Axi al images are supplemented with 3D reconstructions and MIP images which were post-processed at an in dependent workstation. NASCET criteria used. Contrast used:65 mL of Isovue 370 with IV Contrast, Oral contrast used: None. CT DLP: 387.50 mGycm, Automated exposure control for dose reduction was used. FINDINGS: CTA HEAD: Moderate mucosal thickening throughout the left maxillary sinus. The vertebral and basilar arteries are widely patent as is the remainder of the posterior circulation . There is redemonstrated anatomic variation with persistent origin left posterior cerebral arter y. The bilateral internal carotid arteries as well as the remainder of the anterior circulation are wide ly patent. Dural venous sinuses are patent. CTA NECK: Bovine configuration to the aortic arch. Vertebral arteries are codominant and patent throughout their course. The previously questioned linear low signal within the left carotid bulb is no longer seen. There is minimal atherosclerotic change within the left carotid bulb. The common and internal carotid arteries on both sides are otherwise widely patent. No dissection is seen. IMPRESSION: CTA NECK: 1. The previous question abnormality within the left carotid bulb has not persisted. Findings suggest artifact on the prior exam. No arterial dissection or hemodynamically significant vertebral/carotid artery stenosis within the neck. CTA HEAD: 2. No large vessel intracranial arterial occlusion, significant stenosis, or aneurysmal change is see n. 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 [facility], , 04/24/2025 2:19 PM
[2025-04-24 17:09] LABS: Glucose,Whole Blood 130 mg/dL (70-110)
[2025-04-24 19:42] VITALS: BP 125/74; PULSE 71; TEMP 98.8
[2025-04-24 19:53] LABS: Glucose,Whole Blood 209 mg/dL (70-110)
[2025-04-25] MEDS ORDERED: FAMOTIDINE 20 MG TAB PO SCH (09:00)
== END 2025-04-24 20:37 | disposition home or self-care (01) | DRG 73 ==
LOC: EC 10:51 → 6NMEDSUR 13:36 → OBSVTOIN 13:37 → 6NMEDSUR 15:46
PROVIDERS: ADMIT Family Medicine; ATTEND Family Medicine
DX: E11.41 Type 2 diabetes mellitus with diabetic mononeuropathy (principal); I63.532 Cerebral infarction due to unspecified occlusion or stenosis of left posterior cerebral artery; H49.01 Third [oculomotor] nerve palsy, right eye; H49.11 Fourth [trochlear] nerve palsy, right eye; I10 Essential (primary) hypertension; Z79.4 Long term (current) use of insulin; G47.00 Insomnia, unspecified; E78.5 Hyperlipidemia, unspecified; Z79.1 Long term (current) use of non-steroidal anti-inflammatories (NSAID); Z79.82 Long term (current) use of aspirin; Z79.84 Long term (current) use of oral hypoglycemic drugs; Z79.899 Other long term (current) drug therapy; Z88.0 Allergy status to penicillin; Z87.19 Personal history of other diseases of the digestive system
CPT/HCPCS: 36415; 70450; 70496; 70498; 70551; 71046; 80053; 80061; 82550; 82565; 82607; 84443; 84520; 85025; 85610; 85652; 85730; 93005; 93306; 94640; 99285